=== PATIENT | female | born 1945 | race Hispanic/Latino ===

== ENCOUNTER 2017-08-10 06:10 | Day surgery (SDC) | payer OTHER ==
[~2017-08-10] VITALS: Ht 152.4 cm; Wt 70.5 kg
[2017-08-10] MEDS ORDERED: SODIUM CHLORIDE 0.9% 1000ML 1,000 ML IV ONE (06:52)
[2017-08-10 06:53] VITALS: BP 147/70
[2017-08-10] MEDS ORDERED: LEVO100T12 PO (07:23)
[2017-08-10] MEDS ORDERED: AMLO-128 PO (07:23)
[2017-08-10] MEDS ORDERED: FURO40TA5 PO (07:23)
[2017-08-10] MEDS ORDERED: POTA10TA14 PO (07:23)
[2017-08-10 08:07] VITALS: BP 103/57
== END 2017-08-10 08:35 | disposition home or self-care (01) ==
LOC: DAH 06:10 → ENDO 06:10
PROVIDERS: ATTEND Internal Medicine Gastroenterology
DX: K21.9 Gastro-esophageal reflux disease without esophagitis (principal); K44.9 Diaphragmatic hernia without obstruction or gangrene; I10 Essential (primary) hypertension; E78.5 Hyperlipidemia, unspecified; E11.9 Type 2 diabetes mellitus without complications; E03.8 Other specified hypothyroidism; M19.90 Unspecified osteoarthritis, unspecified site; M10.9 Gout, unspecified; Z86.010 Personal history of colon polyps; Z79.899 Other long term (current) drug therapy
CPT/HCPCS: 43248; 82948; 93005; A4606; J7030

== ENCOUNTER → 2022-11-11 | Outpatient (CLI) | payer OTHER ==
[~2022-11-11] MED LIST: AMLO-142 PO; FURO40TA5 PO; LEVO100T12 PO; POTA10TA14 PO
== END | disposition home or self-care (01) ==
LOC: RAH 07:56
PROVIDERS: ATTEND Internal Medicine
DX: R10.2 Pelvic and perineal pain (principal)
CPT/HCPCS: 74176

== ENCOUNTER → 2025-04-03 | Outpatient (CLI) | payer OTHER ==
[~2025-04-03] MED LIST changes: +GADOTERATE MEGLUMINE 10 MMOL/20 ML VIAL IV ONE
--- NOTE | 2025-04-03 16:39 | HMCIMG ---
EXAM: MAGNETIC RESONANCE IMAGING OF THE BRAIN WITH AND WITHOUT INTRAVENOUS CONTRAST (INCLUDING BRAINSTEM) TECHNIQUE: Magnetic resonance imaging of the brain was performed both before and after intravenous contrast administration using standard pulse sequences in multiple planes. Sequences included axial and sagittal T1-weighted imaging, axial T2-weighted imaging, fluid-attenuated inversion recovery (FLAIR), diffusion-weighted imaging with corresponding apparent diffusion coefficient maps, and susceptibility-sensitive imaging for blood products. Post-contrast imaging was performed following intravenous administration of gadolinium-based contrast material. CLINICAL INFORMATION: R42 ??? Dizziness and giddiness. COMPARISON: None. FINDINGS: Cerebral parenchyma: Nonspecific foci of high T2/FLAIR signal are observed in the periventricular and subcortical deep white matter, likely representing chronic microvascular ischemic changes. No evidence of acute infarct, intracranial hemorrhage, mass, or mass effect is identified. Extra-axial spaces: Normal in size and morphology for age. No extra-axial fluid collections. Ventricular system and basal cisterns: Ventricles are normal in size and configuration for the patient???s age. Basal cisterns are patent and unremarkable. Posterior fossa: Brainstem and cerebellum are unremarkable. No acute infarction or mass lesion. Age-appropriate mild atrophy is noted. No cerebellopontine angle mass. Vascular system: Appropriate arterial and dural venous sinus flow voids are preserved, suggesting normal intracranial circulation. Post-contrast images: No abnormal parenchymal or leptomeningeal enhancement identified. No evidence of enhancing mass or vascular malformation. Orbits and paranasal sinuses: No intraorbital pathology. Paranasal sinuses are clear. IMPRESSION: 1. No acute intracranial findings. Chronic findings as above. /[place]
== END | disposition home or self-care (01) ==
LOC: RAH 10:48
PROVIDERS: ATTEND Internal Medicine
DX: G31.89 Other specified degenerative diseases of nervous system (principal); R42 Dizziness and giddiness
CPT/HCPCS: 70553; A9575

== ENCOUNTER → 2025-04-29 | Outpatient (CLI) | payer OTHER ==
[~2025-04-29] MED LIST changes: -GADOTERATE MEGLUMINE 10 MMOL/20 ML VIAL IV ONE
--- NOTE | 2025-04-30 10:57 | HMCIMG ---
CLINICAL INDICATION: Asymptomatic menopausal state COMPARISON: None TECHNIQUE: Bone densitometry is performed of the lumbar spine and left hip. FINDINGS: Total BMD of lumbar spine is 0.872 g/cm2 with a T-score of -1.6 and Z-score is 1.1. Total BMD of left hip is 0.760 g/cm2 with a T-score of -1.5 and Z-score is 0.5. FRAX SCORE: The 10 year fracture risk for a major osteoporotic fracture and hip fracture major osteoporotic fracture 9.8% and hip fracture is 2.9% IMPRESSION: 1. Osteopenia lumbar spine 2. Osteopenia left hip 3. Recommend follow-up in 13 months World Health Organization criteria for BMD interpretation classify patients as Normal (T-score at or above -1.0), Osteopenic (T-score between -1.0 and -2.5), or Osteoporotic (T-score at or below -2.5). FRAX SCORE: A. All treatment decisions require clinical judgment and consideration of individual patient factors, including patient preferences, comorbidities, previous drug use, risk factors not captured in the FRAX model (e.g., frailty, falls, vitamin D deficiency, increased bone turnover, interval significant decline in bone density) and possible [id number]-[id number]-estimation of fracture risk by FRAX. B. In addition, the NOF Guide recommends that FDA-approved medical therapies be considered in postmenopausal women and men age greater than or equal to 50 years with a: i. Hip or vertebral (clinical or morphometric) fracture. ii. T-score of less than or equal to -2.5 at the spine or hip. iii. Ten-year fracture probability by FRAX of greater than or equal to 3% for hip fracture of greater than or equal to 20% for major osteoporotic fracture.
== END | disposition home or self-care (01) ==
LOC: RAH 08:42
PROVIDERS: ATTEND Internal Medicine
DX: M85.89 Other specified disorders of bone density and structure, multiple sites (principal); Z78.0 Asymptomatic menopausal state
CPT/HCPCS: 77080